=== PATIENT | male | born 1990 | race Caucasian/White ===

== ENCOUNTER 2020-10-25 04:16 | Emergency (ER) | payer OTHER ==
[2020-10-25] MEDS ORDERED: NA CHLORIDE 0.9% 1,000 ML ONE (04:54)
[2020-10-25] MEDS ORDERED: ONDANSETRON 4 MG/2 ML VIAL ONE (04:54)
[2020-10-25] MEDS ORDERED: KETOROLAC 30 MG/ML INJ ONE (04:54)
[2020-10-25] MEDS ORDERED: MORPHINE 4 MG/ML SYR ONE ×2 (04:57→05:18)
[2020-10-25 05:03] LABS: Basophils % 0.7 % (0-1.3); Hematocrit 47.7 % (39.6-49.0); Lymphocytes % 49.1 % (15.3-44.8); MPV 9.6 fL (7.6-11.3); RBC Red Blood Cell Count 5.56 M/uL (4.33-5.43)
[2020-10-25 05:07] LABS: Albumin 3.8 g/dL (3.4-5.0); Bilirubin Direct 0.3 mg/dL (0-0.2); Bilirubin Total 1.2 mg/dL (0.2-1.0); Potassium 4.1 mmol/L (3.5-5.1); Protein, Total 7.4 g/dL (6.4-8.2)
--- NOTE | 2020-10-25 05:48 | ER ---
Nurse's Notes [facility] Name: Sreedhar Sutherland JR. Age: 30 yrs Sex: Male : 1990 Arrival Date: 10/25/2020 Time: 04:17 Bed 7 Private MD: Diagnosis: Hydronephrosis with renal and ureteral calculous obstruction-4 mm left UVJ Presentation: 10/25 04:24 Chief complaint: Patient states: left flank pain X 30 min ago, +hx of kidney stones, iw +nausea. Coronavirus screen: At this time, the client does not indicate any symptoms associated with coronavirus-19. Ebola Screen: Patient negative for fever greater than or equal to 101.5 degrees Fahrenheit, and additional compatible Ebola Virus Disease symptoms Patient denies exposure to infectious person. Patient denies travel to an Ebola-affected area in the 21 days before illness onset. No symptoms or risks identified at this time. Initial Sepsis Screen: Does the patient meet any 2 criteria? No. Patient's initial sepsis screen is negative. Does the patient have a suspected source of infection? No. Patient's initial sepsis screen is negative. Risk Assessment: Do you want to hurt yourself or someone else? Patient reports no desire to harm self or others. Onset of symptoms was October 25, 2020. 04:24 Method Of Arrival: Ambulatory iw 04:24 Acuity: JAZZMINE 3 iw Historical: - Allergies: 04:25 No Known Allergies; iw - Home Meds: 04:25 Adderall XR Oral once daily [Active]; iw - PMHx: 04:25 ADD/ADHD; iw - PSHx: 04:25 None; iw - Immunization history:: Adult Immunizations not up to date. - Social history:: Smoking status: . - Family history:: not pertinent. Screenin:45 Abuse screen: Denies threats or abuse. Denies injuries from another. Nutritional jm8 screening: No deficits noted. Tuberculosis screening: No symptoms or risk factors identified. Fall Risk IV access (20 points). Assessment: 04:43 General: Appears distressed, uncomfortable, Behavior is agitated, crying, restless. jm8 Pain: Complains of pain in left flank Pain currently is 10 out of 10 on a pain scale. Pain began 30 min ago. Is continuous. Neuro: No deficits noted. Cardiovascular: No deficits noted. Respiratory: No deficits noted. GI: No deficits noted. Bowel sounds Abdomen is tender to palpation in posterior aspect of left lateral abdomen. : Reports burning with urination, pain in left flank(s). EENT: No deficits noted. Derm: No deficits noted. Musculoskeletal: No deficits noted. 04:56 Reassessment: Pt returns from CT at this time. still complains of pain. jm8 Vital Signs: 04:24 Weight 108.86 kg; Height 6 ft. 0 in. (182.88 cm); Pain 10/10; iw 04:27 BP 140 / 105; Pulse 62; Resp 20; Temp 97.8(O); Pulse Ox 100% on R/A; oe 05:24 BP 116 / 78; Pulse 62; Resp 20; Pulse Ox 100% ; Pain 5/10; jm8 04:24 Body Mass Index 32.55 (108.86 kg, 182.88 cm) iw ED Course: 04:17 Patient arrived in ED. bp1 04:20 Mike Rueda MD is Attending Physician. dillan 04:25 Triage completed. iw 04:25 Arm band placed on. iw 04:46 Patient has correct armband on for positive identification. Bed in low position. Call 8 light in reach. Side rails up X2. Adult w/ patient. Door closed. Warm blanket given. 05:03 CT Stone Protocol In Process Unspecified. EDMS 05:46 Jaleel Hoang MD is Referral Physician. dillan 06:09 No provider procedures requiring assistance completed. IV discontinued, intact, rv bleeding controlled, No redness/swelling at site. Pressure dressing applied. Administered Medications: 04:47 Drug: TORadol (ketorolac) 30 mg Route: IVP; Site: right antecubital; jm8 05:04 Follow up: Response: No adverse reaction; Pain is unchanged, physician notified jm8 04:47 Drug: morphine 4 mg Route: IVP; Site: right antecubital; jm8 05:02 Follow up: Response: No adverse reaction; Pain is unchanged, physician notified jm8 04:47 Drug: Zofran (Ondansetron) 4 mg Route: IVP; Site: right antecubital; jm8 05:02 Follow up: Response: No adverse reaction; Nausea is decreased 8 04:48 Drug: NS 0.9% 1000 ml Route: IV; Rate: 1 bolus; Site: right antecubital; jm8 05:03 Follow up: Response: No adverse reaction 8 06:10 Follow up: IV Status: Completed infusion; IV Intake: 1000ml rv 05:03 Drug: morphine 4 mg Route: IVP; Site: right antecubital; jm8 05:27 Follow up: Response: No adverse reaction; Pain is decreased 8 05:59 Drug: Flomax 0.4 mg Route: PO; 8 05:59 Follow up: Response: No adverse reaction; Medication administered at discharge. [facility] Intake: 06:10 IV: 1000ml; Total: 1000ml. rv Outcome: 05:47 Discharge ordered by . dillan 06:10 Discharged to home ambulatory. rv 06:10 Condition: good 06:10 Discharge instructions given to patient, Instructed on discharge instructions, follow up and referral plans. medication usage, Demonstrated understanding of instructions, follow-up care, medications, Prescriptions given X 4. 06:15 Patient left the ED. iw Signatures: Dispatcher [employer] EDMS Mike Rueda MD MD cha Williams, Irene, RN RN Vikas Owens Ronaldo, RN RN Iris Alves Joseph, RN RN jm8 Corrections: (The following items were deleted from the chart) 05:04 05:02 Response: No adverse reaction [facility] jm8 05:26 05:24 BP 162 / 99; Pulse 100bpm; Resp 20bpm; Pulse Ox 100%; [facility] jm8 06:08 05:24 BP 162 / 99; Pulse 100bpm; Resp 20bpm; Pulse Ox 100%; Pain 5/10; [facility] jm8
--- NOTE | 2020-10-25 05:48 | EDPHYS ---
Physician Documentation [facility] Name: Sreedhar Sutherland JR. Age: 30 yrs Sex: Male : 1990 Arrival Date: 10/25/2020 Time: 04:17 Bed 7 Private MD: ED Physician Mike Rueda HPI: 10/25 04:34 This 30 yrs old Male presents to ER via Ambulatory with complaints of dillan Possible Kidney Stone. 04:34 The patient complains of pain in the left low back and left mid back. Location: left dillan low back and left mid back. Onset: The symptoms/episode began/occurred just prior to arrival. Modifying factors: The symptoms are alleviated by nothing. the symptoms are aggravated by nothing. Associated signs and symptoms: The patient has no apparent associated signs or symptoms. Severity of pain: At its worst the pain was severe in the emergency department the pain is unchanged. The patient has experienced similar episodes in the past, multiple times. Historical: - Allergies: 04:25 No Known Allergies; iw - Home Meds: 04:25 Adderall XR Oral once daily [Active]; iw - PMHx: 04:25 ADD/ADHD; iw - PSHx: 04:25 None; iw - Immunization history:: Adult Immunizations not up to date. - Social history:: Smoking status: . - Family history:: not pertinent. ROS: 04:34 Constitutional: Negative for fever, chills, and weight loss, Eyes: Negative for injury, dillan pain, redness, and discharge, ENT: Negative for injury, pain, and discharge, Neck: Negative for injury, pain, and swelling, Cardiovascular: Negative for chest pain, palpitations, and edema, Respiratory: Negative for shortness of breath, cough, wheezing, and pleuritic chest pain, Abdomen/GI: Negative for abdominal pain, nausea, vomiting, diarrhea, and constipation, : Negative for injury, bleeding, discharge, and swelling, MS/Extremity: Negative for injury and deformity, Skin: Negative for injury, rash, and discoloration, Neuro: Negative for headache, weakness, numbness, tingling, and seizure, Psych: Negative for depression, anxiety, suicide ideation, homicidal ideation, and hallucinations, Allergy/Immunology: Negative for hives, rash, and allergies, Endocrine: Negative for neck swelling, polydipsia, polyuria, polyphagia, and marked weight changes, Hematologic/Lymphatic: Negative for swollen nodes, abnormal bleeding, and unusual bruising. 04:34 Back: Positive for decreased range of motion, flank pain, on the left. Exam: 04:34 Constitutional: This is a well developed, well nourished patient who is awake, alert, dillan and in no acute distress. Head/Face: Normocephalic, atraumatic. Eyes: Pupils equal round and reactive to light, extra-ocular motions intact. Lids and lashes normal. Conjunctiva and sclera are non-icteric and not injected. Cornea within normal limits. Periorbital areas with no swelling, redness, or edema. ENT: Nares patent. No nasal discharge, no septal abnormalities noted. Tympanic membranes are normal and external auditory canals are clear. Oropharynx with no redness, swelling, or masses, exudates, or evidence of obstruction, uvula midline. Mucous membranes moist. Neck: Trachea midline, no thyromegaly or masses palpated, and no cervical lymphadenopathy. Supple, full range of motion without nuchal rigidity, or vertebral point tenderness. No Meningismus. Chest/axilla: Normal chest wall appearance and motion. Nontender with no deformity. No lesions are appreciated. Cardiovascular: Regular rate and rhythm with a normal S1 and S2. No gallops, murmurs, or rubs. Normal PMI, no JVD. No pulse deficits. Respiratory: Lungs have equal breath sounds bilaterally, clear to auscultation and percussion. No rales, rhonchi or wheezes noted. No increased work of breathing, no retractions or nasal flaring. Abdomen/GI: Soft, non-tender, with normal bowel sounds. No distension or tympany. No guarding or rebound. No evidence of tenderness throughout. Male : Normal genitalia with no discharge or lesions. Skin: Warm, dry with normal turgor. Normal color with no rashes, no lesions, and no evidence of cellulitis. MS/ Extremity: Pulses equal, no cyanosis. Neurovascular intact. Full, normal range of motion. Neuro: Awake and alert, GCS 15, oriented to person, place, time, and situation. Cranial nerves II-XII grossly intact. Motor strength 5/5 in all extremities. Sensory grossly intact. Cerebellar exam normal. Normal gait. Psych: Awake, alert, with orientation to person, place and time. Behavior, mood, and affect are within normal limits. 04:34 Back: pain, that is moderate, ROM is normal, normal spinal alignment noted, CVA tenderness, that is mild, is noted on the left, muscle spasm, is not present. Vital Signs: 04:24 Weight 108.86 kg; Height 6 ft. 0 in. (182.88 cm); Pain 10/10; iw 04:27 BP 140 / 105; Pulse 62; Resp 20; Temp 97.8(O); Pulse Ox 100% on R/A; oe 05:24 BP 116 / 78; Pulse 62; Resp 20; Pulse Ox 100% ; Pain 5/10; jm8 04:24 Body Mass Index 32.55 (108.86 kg, 182.88 cm) iw MDM: 04:21 Patient medically screened. [facility] 04:40 Differential diagnosis: nephrolithiasis, pyelonephritis, UTI, testicular torsion. Data dillan reviewed: vital signs, nurses notes, lab test result(s), radiologic studies, CT scan. Data interpreted: monitor car operator: rate is 62 beats/min, rhythm is regular, Pulse oximetry: on. Counseling: I had a detailed discussion with the patient and/or guardian regarding: the historical points, exam findings, and any diagnostic results supporting the discharge/admit diagnosis, lab results, radiology results. 10/25 04:23 Order name: Basic Metabolic Panel [facility] 10/25 04:23 Order name: CBC with Diff [facility] 10/25 04:23 Order name: Hepatic Function; Complete Time: 05:45 [facility] 10/25 04:23 Order name: Lipase; Complete Time: 05:45 [facility] 10/25 04:23 Order name: Basic Metabolic Panel; Complete Time: 05:45 EDMS 10/25 04:23 Order name: CT Stone Protocol [facility] 10/25 04:23 Order name: CBC with Automated Diff; Complete Time: 05:45 EDMS 10/25 04:23 Order name: IV Saline Lock; Complete Time: 04:48 [facility] 10/25 04:23 Order name: Labs collected and sent; Complete Time: 04:48 [facility] Administered Medications: 04:47 Drug: TORadol (ketorolac) 30 mg Route: IVP; Site: right antecubital; [facility] 05:04 Follow up: Response: No adverse reaction; Pain is unchanged, physician notified jm8 04:47 Drug: morphine 4 mg Route: IVP; Site: right antecubital; jm8 05:02 Follow up: Response: No adverse reaction; Pain is unchanged, physician notified jm8 04:47 Drug: Zofran (Ondansetron) 4 mg Route: IVP; Site: right antecubital; jm8 05:02 Follow up: Response: No adverse reaction; Nausea is decreased jm8 04:48 Drug: NS 0.9% 1000 ml Route: IV; Rate: 1 bolus; Site: right antecubital; jm8 05:03 Follow up: Response: No adverse reaction jm8 06:10 Follow up: IV Status: Completed infusion; IV Intake: 1000ml rv 05:03 Drug: morphine 4 mg Route: IVP; Site: right antecubital; jm8 05:27 Follow up: Response: No adverse reaction; Pain is decreased [facility] 05:59 Drug: Flomax 0.4 mg Route: PO; jm8 05:59 Follow up: Response: No adverse reaction; Medication administered at discharge. [facility] Disposition: 10/25/20 05:47 Discharged to Home. Impression: Hydronephrosis with renal and ureteral calculous obstruction - 4 mm left UVJ. - Condition is Stable. - Discharge Instructions: Kidney Stones, Kidney Stones, [id number], Hydronephrosis, Dietary Guidelines to Help Prevent Kidney Stones. - Prescriptions for Tylenol- Codeine #3 300-30 mg Oral Tablet - take 2 tablet by ORAL route every 4-6 hours As needed; 30 tablet. Zofran 4 mg Oral Tablet - take 1 tablet by ORAL route every 12 hours As needed; 20 tablet. Flomax 0.4 mg Oral Capsule, Sust. Release 24 hr - take 1 capsule by ORAL route once daily 1/2 hour following the same meal each day; 30 capsule. Cipro 500 mg Oral Tablet - take 1 tablet by ORAL route every 12 hours for 7 days; 14 tablet. - Medication Reconciliation Form, Thank You Letter, Antibiotic Education, Prescription Opioid Use form. - Follow up: Private Physician; When: 2 - 3 days; Reason: Recheck today's complaints, Continuance of care, Re-evaluation by your physician. Follow up: Jaleel Hoang; When: 2 - 3 days; Reason: Recheck today's complaints, Re-evaluation by your physician. - Problem is new. - Symptoms have improved. Signatures: Dispatcher [employer] Mike Brock MD MD cha Williams, Irene, RN RN Devendra Ingram RN RN jm8 Edmund Rodriguez RN rv Corrections: (The following items were deleted from the chart) 06:15 05:47 10/25/2020 05:47 Discharged to Home. Impression: Hydronephrosis with renal and iw ureteral calculous obstruction - 4 mm left UVJ. Condition is Stable. Discharge Instructions: Kidney Stones, Kidney Stones, [id number], Hydronephrosis, Dietary Guidelines to Help Prevent Kidney Stones. Prescriptions for Tylenol-Codeine #3 300-30 mg Oral Tablet - take 2 tablet by ORAL route every 4-6 hours As needed; 30 tablet, Zofran 4 mg Oral Tablet - take 1 tablet by ORAL route every 12 hours As needed; 20 tablet, Flomax 0.4 mg Oral Capsule, Sust. Release 24 hr - take 1 capsule by ORAL route once daily 1/2 hour following the same meal each day; 30 capsule, Cipro 500 mg Oral Tablet - take 1 tablet by ORAL route every 12 hours for 7 days; 14 tablet. and Forms are Medication Reconciliation Form, Thank You Letter, Antibiotic Education, Prescription Opioid Use. Follow up: Private Physician; When: 2 - 3 days; Reason: Recheck today's complaints, Continuance of care, Re-evaluation by your physician. Follow up: Jaleel Hoang; When: 2 - 3 days; Reason: Recheck today's complaints, Re-evaluation by your physician. Problem is new. Symptoms have improved. dillan
[2020-10-25] MEDS ORDERED: TAMSULOSIN 0.4 MG SR CAP ONE (06:14)
[2020-10-25 06:16] LABS: Urine Blood 3+ (Negative); Urine Glucose Negative (Negative); Urine Protein Negative (Negative); Urine Specific Gravity >=1.030 (1.005-1.030); Urine pH 5.5 (5.0-7.0)
[2020-10-25 06:21] VITALS: TEMP 97.8; O2SAT 100
[2020-10-25 06:22] VITALS: BP 116/78
--- NOTE | 2020-10-25 11:41 | RAD REPORT ---
EXAM DESCRIPTION: CT - Stone Protocol - 10/25/2020 6:32 am CLINICAL HISTORY: The patient is 30 years old and is Male; Abd pain;Flank pain TECHNIQUE: Axial computed tomography images of the abdomen and pelvis without intravenous contrast. Sagittal and coronal reformatted images were created and reviewed. This CT exam was performed usi ng one or more of the following dose reduction techniques: automated exposure control, adjustment o f the mA and/or kV according to patient size, and/or use of iterative reconstruction technique. COMPARISON: No relevant prior studies available. FINDINGS: Lung bases: Unremarkable. No mass. No consolidation. ABDOMEN: Liver: Unremarkable. Gallbladder and bile ducts: Unremarkable. No calcified stones. No ductal dilation. Pancreas: Unremarkable. No ductal dilation. Spleen: Unremarkable. No splenomegaly. Adrenals: Unremarkable. No mass. Kidneys and ureters: 4 mm left UVJ stone. Mild left hydroureteronephrosis. Punctate nonobstructing calcifications in the kidneys bilaterally. Stomach and bowel: Unremarkable. No obstruction. No mucosal thickening. PELVIS: Appendix: No findings to suggest acute appendicitis. Bladder: Unremarkable. No stones. Reproductive: Unremarkable as visualized. ABDOMEN and PELVIS: Intraperitoneal space: Unremarkable. No free air. No significant fluid collection. Bones/joints: No acute fracture. No dislocation. Soft tissues: Unremarkable. Vasculature: Unremarkable. No abdominal aortic aneurysm. Lymph nodes: Unremarkable. No enlarged lymph nodes. IMPRESSION: 4 mm left UVJ stone. Mild left hydroureteronephrosis. Electronically signed by: Mauri Gu MD 10/25/2020 5:20 AM CDT Due to temporary technical issues with the PACS/Fluency reporting system, reports are being signed by the in house radiologist without review as a courtesy to ensure prompt reporting. The interpreting r adiologist is fully responsible for the content of the report.
== END 2020-10-25 06:15 | disposition home or self-care (01) ==
LOC: ER 04:16
DX: N13.2 Hydronephrosis with renal and ureteral calculous obstruction (principal); F90.9 Attention-deficit hyperactivity disorder, unspecified type
CPT/HCPCS: 96361; 85025; 80048; 36415; 80076; 81003; 83690; 76377; 74176; 96375; 96374; 99283; J7030; J2405

== ENCOUNTER 2020-12-29 15:46 | Emergency (ER) | payer OTHER ==
[2020-12-29 16:22] LABS: Absolute Lymphocytes (CBC) 4.1 K/uL (0.7-4.9); Basophils % 1.1 % (0-1.3); Lymphocytes % 41.5 % (15.3-44.8); MPV 9.8 fL (7.6-11.3); RBC Red Blood Cell Count 5.88 M/uL (4.33-5.43)
[2020-12-29] MEDS ORDERED: KETOROLAC 30 MG/ML INJ ONE (16:28)
[2020-12-29] MEDS ORDERED: ONDANSETRON 4 MG/2 ML VIAL ONE (16:29)
[2020-12-29] MEDS ORDERED: NA CHLORIDE 0.9% 1,000 ML ONE (16:29)
[2020-12-29 16:38] LABS: Albumin 3.8 g/dL (3.4-5.0); Bilirubin Direct 0.2 mg/dL (0-0.2); Bilirubin Total 0.7 mg/dL (0.2-1.0); Potassium 3.7 mmol/L (3.5-5.1); Protein, Total 7.8 g/dL (6.4-8.2)
[2020-12-29] MEDS ORDERED: MORPHINE 4 MG/ML SYR ONE ×2 (16:42→17:53)
--- NOTE | 2020-12-29 17:04 | RAD REPORT ---
EXAM DESCRIPTION: CT - Stone Protocol - 12/29/2020 4:30 pm CLINICAL HISTORY: FLANK PAIN COMPARISON: Stone Protocol dated 10/25/2020; Stone Protocol dated 03/26/2018 TECHNIQUE: Axial 3 mm thick images were obtained without oral or IV contrast. The [id number] span s the entirety of the system including uppermost abdomen and lung bases. All CT scans are performed using dose optimization technique as appropriate and may include automated exposure control or mA/KV adjustment according to patient size. FINDINGS: Mild hydronephrosis present secondary to a 3 mm calcification mid right ureter. No other o bstructing or nonobstructing calculi on the right. Patient has a 5 mm calcification in the mid left k idney with 3 mm and 5 mm calcifications in upper pole of the left kidney. No suspicious renal masses. Isodense masses and pyelonephritis are not excluded on a stone protocol CT scan. No significant adre nal finding. Urinary bladder is contracted limiting assessment. No bladder calculi. Imaged portions of the liver, spleen and pancreas show no suspicious findings on non-contrast imaging . No gallbladder or biliary tree abnormality identified. No suspicious bowel findings. Appendix is normal. No hernia, mass or bulky lymphadenopathy noted. No free air, free fluid or inflammatory stranding. No significant bony abnormality. IMPRESSION: Mild right hydronephrosis secondary to a 3 mm mid ureter calculus. Nonobstructing left renal calculi. Isodense masses and pyelonephritis are not excluded on stone protocol technique.
[2020-12-29] MEDS ORDERED: MAGNESIUM SULFATE 1 gm IVPB 1 GM/100 ML BAG IV ONE (17:46)
[2020-12-29] MEDS ORDERED: TAMSULOSIN 0.4 MG SR CAP ONE (17:46)
[2020-12-29] MEDS ORDERED: HYDROMORPHONE HCL 1 MG/ML INJ ONE (18:31)
--- NOTE | 2020-12-29 18:33 | ER ---
Nurse's Notes [facility] Name: Sreedhar Sutherland JR. Age: 30 yrs Sex: Male : 1990 Arrival Date: 12/29/2020 Time: 15:48 Bed 7 Private MD: Diagnosis: Calculus of kidney and ureter-right Presentation: 12/29 15:51 Coronavirus screen: Client denies travel out of the [place] in the last 14 days. At this ll1 time, the client does not indicate any symptoms associated with coronavirus-19. Initial Sepsis Screen: Does the patient meet any 2 criteria? No. Patient's initial sepsis screen is negative. Does the patient have a suspected source of infection? Yes: Dysuria/Frequency/Urgency/UTI. Risk Assessment: Do you want to hurt yourself or someone else? Patient reports no desire to harm self or others. Onset of symptoms was December 29, 2020. 15:51 Method Of Arrival: Ambulatory 1 15:51 Acuity: JAZZMINE 3 1 15:56 Chief complaint: Patient states: Severe R lower back pain with nausea and sweating for ll1 1 day. States it feels like when he had his past kidney stones. No known fever. 15:57 Ebola Screen: Patient denies travel to an Ebola-affected area in the 21 days before 1 illness onset. Historical: - Allergies: 15:53 No Known Allergies; ll1 - PMHx: 15:53 ADD/ADHD; Kidney stones; ll1 - PSHx: 15:53 None; ll1 - Immunization history:: Flu vaccine status is unknown. - Social history:: Smoking status: Patient denies any tobacco usage or history of. Screenin:15 Abuse screen: Denies threats or abuse. Denies injuries from another. Nutritional tr6 screening: No deficits noted. Tuberculosis screening: No symptoms or risk factors identified. Fall Risk None identified. Assessment: 16:16 General: Appears distressed, uncomfortable, Behavior is crying, restless. Pain: tr6 Complains of pain in right sided abdominal pain Pain at worst was 10 out of 10 on a pain scale. Pain began suddenly, 30 min ago. Noted to be crying, grimacing, moaning, restless, Also complains of nausea, diaphoresis. Neuro: No deficits noted. Cardiovascular: No deficits noted. Respiratory: No deficits noted. GI: Abdomen is obese, Abd is soft and non tender Reports right sided abdominal pain starting 30 minutes ago. : No deficits noted. EENT: No deficits noted. Derm: No deficits noted. Musculoskeletal: No deficits noted. 17:18 Reassessment: Patient states feeling better. Patient states symptoms have improved. pt tr6 reports that pain meds helped with the pain. 17:51 Reassessment: Patient and/or family updated on plan of care and expected duration. Pain tr6 level reassessed. Patient is alert, oriented x 3, equal unlabored respirations, skin warm/dry/pink. three andrea sized welts noted on pts right forearm proximal to IV insertion site. pt denies pain or itching. PA aware. will continue to monitor. 18:20 Reassessment: pt given more pain medications. pt reports that the pain medication is tr6 not as effective as before. Vital Signs: 15:51 BP 138 / 106; Pulse 64; Resp 18; Temp 97.4; Pulse Ox 98% ; Weight 113.4 kg; Height 6 ll1 ft. 0 in. (182.88 cm); Pain 10/10; 18:20 BP 132 / 98; Pulse 60; Resp 18; Pulse Ox 96% on R/A; tr6 15:51 Body Mass Index 33.91 (113.40 kg, 182.88 cm) ll1 ED Course: 15:48 Patient arrived in ED. am2 15:52 Triage completed. ll1 15:53 Arm band placed on Patient placed in an exam room, on a stretcher. ll1 15:55 Wen Hackett RN is Primary Nurse. tr6 15:57 Mike Armas PA is PHCP. cp 15:57 Mike Rueda MD is Attending Physician. cp 16:15 Appears restless. Awaiting lab results. tr6 16:15 Patient has correct armband on for positive identification. Bed in low position. Call tr6 light in reach. Side rails up X 1. Pulse ox on. NIBP on. Door closed. Noise minimized. Visitors limited. Lights dimmed. Moved to private room. Cool cloth applied. Diet: Patient is NPO. 16:15 Inserted saline lock: 18 gauge in right forearm, using aseptic technique. Blood tr6 collected. 16:15 No provider procedures requiring assistance completed. tr6 16:30 CT Stone Protocol In Process Unspecified. EDMS 18:32 Jaleel Hoang MD is Referral Physician. cp 19:14 IV discontinued, intact, bleeding controlled, No redness/swelling at site. Pressure tr6 dressing applied. Administered Medications: 16:14 Drug: TORadol - (ketorolac) 15 mg Route: IVP; Site: right forearm; tr6 17:21 Follow up: Response: Pain is unchanged, physician notified tr6 16:14 Drug: Zofran (Ondansetron) 4 mg Route: IVP; Site: right forearm; tr6 17:21 Follow up: Response: Nausea is decreased tr6 16:14 Drug: NS 0.9% 1000 ml Route: IV; Rate: 1 bolus; Site: right forearm; tr6 16:30 Drug: morphine 4 mg Route: IVP; Site: right forearm; tr6 17:20 Follow up: Response: Pain is decreased; Anxiety decreased tr6 17:33 Drug: Flomax (tamsulosin) 0.4 mg Route: PO; tr6 17:34 Drug: Magnesium Sulfate 1 grams Route: IVPB; Infused Over: 20 mins; Site: right forearm;tr6 17:35 Drug: morphine 4 mg Route: IVP; Site: right forearm; tr6 18:13 Drug: Dilaudid (HYDROmorphone) 1 mg Route: IVP; Site: right forearm; tr6 Outcome: 18:32 Discharge ordered by MD. cp 19:14 Discharged to home ambulatory. tr6 19:14 Condition: stable 19:14 Discharge instructions given to patient, family, significant other, Instructed on discharge instructions, follow up and referral plans. medication usage, safety practices, Demonstrated understanding of instructions, follow-up care, medications, Prescriptions given X 2. 19:14 Patient left the ED. tr6 Signatures: Dispatcher [employer] EDMS Mike Armas PA PA cp Moreno, Amanda am2 Ariadne Adams RN RN ll1 Wen Hackett RN RN tr6
--- NOTE | 2020-12-29 18:33 | EDPHYS ---
Physician Documentation [facility] Name: Sreedhar Sutherland JR. Age: 30 yrs Sex: Male : 1990 Arrival Date: 12/29/2020 Time: 15:48 Bed 7 Private MD: ED Physician Mike Rueda HPI: 12/29 16:05 This 30 yrs old Male presents to ER via Ambulatory with complaints of Flank cp Pain. 16:05 The patient complains of pain in the right flank. The pain radiates to the right low cp back and right side abdomen. Onset: The symptoms/episode began/occurred suddenly, today. Associated signs and symptoms: Pertinent positives: nausea, Pertinent negatives: dysuria, fever, pain radiating to the lower extremities. Severity of pain: in the emergency department the pain is unchanged despite home interventions. The patient has experienced similar episodes in the past, today's symptoms are similar, to when the patient was apparently diagnosed with kidney stone. Historical: - Allergies: 15:53 No Known Allergies; ll1 - PMHx: 15:53 ADD/ADHD; Kidney stones; ll1 - PSHx: 15:53 None; ll1 - Immunization history:: Flu vaccine status is unknown. - Social history:: Smoking status: Patient denies any tobacco usage or history of. ROS: 16:10 Constitutional: Negative for body aches, chills, fever, poor PO intake. cp 16:10 Eyes: Negative for injury, pain, redness, and discharge. cp 16:10 ENT: Negative for ear pain, sore throat, difficulty swallowing, difficulty handling secretions. 16:10 Cardiovascular: Negative for chest pain. 16:10 Respiratory: Negative for cough, shortness of breath, wheezing. 16:10 Abdomen/GI: Positive for abdominal pain, nausea, Negative for diarrhea, constipation, active vomiting. 16:10 Back: Positive for flank pain, on the right. 16:10 : Negative for urinary symptoms, testicular pain 16:10 Neuro: Negative for altered mental status, headache, weakness. 16:10 All other systems are negative. Exam: 16:20 Head/Face: Normocephalic, atraumatic. cp 16:20 Constitutional: The patient appears in no acute distress, alert, awake, non-toxic, well developed, well nourished, in obvious pain, uncomfortable. 16:20 Eyes: Periorbital structures: appear normal, Conjunctiva: normal, no exudate, no injection, Sclera: no appreciated abnormality, Lids and lashes: appear normal, bilaterally. 16:20 ENT: External ear(s): are unremarkable, Nose: is normal, Mouth: Lips: moist, Oral mucosa: moist, Posterior pharynx: Airway: no evidence of obstruction, patent. 16:20 Chest/axilla: Inspection: normal, Palpation: is normal, no crepitus, no tenderness. 16:20 Cardiovascular: Rate: normal, Rhythm: regular, Edema: is not appreciated, JVD: is not appreciated. 16:20 Respiratory: the patient does not display signs of respiratory distress, Respirations: normal, no use of accessory muscles, no retractions, labored breathing, is not present, Breath sounds: are clear throughout, no decreased breath sounds, no stridor, no wheezing. 16:20 Abdomen/GI: Inspection: abdomen appears normal, Bowel sounds: active, all quadrants, Palpation: soft, in all quadrants, severe abdominal tenderness, in the anterior aspect of right lateral abdomen and posterior aspect of right lateral abdomen, rebound tenderness, is not appreciated, voluntary guarding, is elicited in the anterior aspect of right lateral abdomen and posterior aspect of right lateral abdomen. 16:20 Neuro: Orientation: to person, place \T\ time. Mentation: is normal. Vital Signs: 15:51 BP 138 / 106; Pulse 64; Resp 18; Temp 97.4; Pulse Ox 98% ; Weight 113.4 kg; Height 6 ll1 ft. 0 in. (182.88 cm); Pain 10/10; 18:20 BP 132 / 98; Pulse 60; Resp 18; Pulse Ox 96% on R/A; tr6 15:51 Body Mass Index 33.91 (113.40 kg, 182.88 cm) ll1 MDM: 15:58 Patient medically screened. cp 16:20 Differential diagnosis: nephrolithiasis, pyelonephritis, UTI, pancreatitis. cp 18:30 ED course: Review of [place] prescription monitor website: narcotic score 090, sedative cp score 040, overdose risk score 280. 18:31 Data reviewed: vital signs, nurses notes, lab test result(s), radiologic studies, CT cp scan. 18:31 Counseling: I had a detailed discussion with the patient and/or guardian regarding: the cp historical points, exam findings, and any diagnostic results supporting the discharge/admit diagnosis, lab results, radiology results, to return to the emergency department if symptoms worsen or persist or if there are any questions or concerns that arise at home. Response to treatment: the patient's symptoms have markedly improved after treatment, VSS. Pain markedly improved. Will discharge to home for continued monitoring. 12/29 16:00 Order name: Basic Metabolic Panel; Complete Time: 17:06 12/29 17:06 Interpretation: Normal except: CL 109; GFR 88. 12/29 16:00 Order name: CBC with Diff; Complete Time: 17:06 12/29 17:17 Interpretation: Normal except: RBC 5.88; HCT 51.0. 12/29 16:00 Order name: Hepatic Function; Complete Time: 17:06 12/29 17:17 Interpretation: Normal except: GLOB 4.0; A/G 1.0. 12/29 16:00 Order name: Lipase; Complete Time: 17:06 12/29 16:00 Order name: CT Stone Protocol; Complete Time: 17:06 12/29 16:00 Order name: IV Saline Lock; Complete Time: 16:14 12/29 16:00 Order name: Labs collected and sent; Complete Time: 16:15 12/29 17:51 Order name: PO challenge; Complete Time: 18:02 cp Administered Medications: 16:14 Drug: TORadol - (ketorolac) 15 mg Route: IVP; Site: right forearm; tr6 17:21 Follow up: Response: Pain is unchanged, physician notified tr6 16:14 Drug: Zofran (Ondansetron) 4 mg Route: IVP; Site: right forearm; tr6 17:21 Follow up: Response: Nausea is decreased tr6 16:14 Drug: NS 0.9% 1000 ml Route: IV; Rate: 1 bolus; Site: right forearm; tr6 16:30 Drug: morphine 4 mg Route: IVP; Site: right forearm; tr6 17:20 Follow up: Response: Pain is decreased; Anxiety decreased tr6 17:33 Drug: Flomax (tamsulosin) 0.4 mg Route: PO; tr6 17:34 Drug: Magnesium Sulfate 1 grams Route: IVPB; Infused Over: 20 mins; Site: right forearm;tr6 17:35 Drug: morphine 4 mg Route: IVP; Site: right forearm; tr6 18:13 Drug: Dilaudid (HYDROmorphone) 1 mg Route: IVP; Site: right forearm; tr6 Disposition: 12/29/20 18:32 Discharged to Home. Impression: Calculus of kidney and ureter - right. - Condition is Stable. - Discharge Instructions: Kidney Stones. - Prescriptions for Tylenol- Codeine #3 300-30 mg Oral Tablet - take 2 tablets by ORAL route every 6-8 hours As needed; 20 tablet. Zofran 4 mg Oral Tablet - take 1 tablet by ORAL route every 12 hours As needed; 20 tablet. Flomax 0.4 mg Oral Capsule, Sust. Release 24 hr - take 1 capsule by ORAL route once daily As needed 1/2 hour following the same meal each day; 7 capsule. Keflex 500 mg Oral Capsule - take 1 capsule by ORAL route every 12 hours for 7 days; 14 capsule. - Medication Reconciliation Form, Thank You Letter, Antibiotic Education, Prescription Opioid Use form. - Follow up: Jaleel Hoang MD; When: 2 - 3 days; Reason: Recheck today's complaints. - Problem is new. - Symptoms have improved. Signatures: Dispatcher [employer] EDMS Mike Armas PA PA cp Lewis, Lynsay, RN RN ll1 Wen Hackett RN RN tr6 Corrections: (The following items were deleted from the chart) 19:14 18:32 12/29/2020 18:32 Discharged to Home. Impression: Calculus of kidney and ureter - tr6 right. Condition is Stable. Forms are Medication Reconciliation Form, Thank You Letter, Antibiotic Education, Prescription Opioid Use. Follow up: Jaleel Hoang; When: 2 - 3 days; Reason: Recheck today's complaints. Problem is new. Symptoms have improved. cp :37 12/28 16:20 Constitutional: The patient appears in no acute distress, alert, awake, cp non-toxic, well developed, well nourished, in obvious pain, uncomfortable, cp 12/29 21:37 12/28 16:20 Head/Face: Normocephalic, atraumatic. cp cp 12/29 21:37 12/28 16:20 Eyes: Periorbital structures: appear normal, Conjunctiva: normal, no cp exudate, no injection, Sclera: no appreciated abnormality, Lids and lashes: appear normal, bilaterally, cp 12/29 21:12/28 16:20 ENT: External ear(s): are unremarkable, Nose: is normal, Mouth: Lips: cp moist, Oral mucosa: moist, Posterior pharynx: Airway: no evidence of obstruction, patent, cp 12/29 21:12/28 16:20 Chest/axilla: Inspection: normal, Palpation: is normal, no crepitus, no cp tenderness, cp 12/29 21:12/28 16:20 Cardiovascular: Rate: normal, Rhythm: regular, Edema: is not appreciated, cp JVD: is not appreciated, cp 12/29 20:12/28 16:20 Respiratory: the patient does not display signs of respiratory distress, cp Respirations: normal, no use of accessory muscles, no retractions, labored breathing, is not present, Breath sounds: are clear throughout, no decreased breath sounds, no stridor, no wheezing, cp 12/29 21:12/28 16:20 Abdomen/GI: Inspection: abdomen appears normal, Bowel sounds: active, all cp quadrants, Palpation: soft, in all quadrants, severe abdominal tenderness, in the anterior aspect of right lateral abdomen and posterior aspect of right lateral abdomen, rebound tenderness, is not appreciated, voluntary guarding, is elicited in the anterior aspect of right lateral abdomen and posterior aspect of right lateral abdomen, cp 12/29 20:12/28 16:20 Neuro: Orientation: to person, place \T\ time. Mentation: is normal, cp cp
[2020-12-29 19:20] VITALS: TEMP 97.4
[2020-12-29 19:21] VITALS: BP 132/98; O2SAT 96
== END 2020-12-29 19:14 | disposition home or self-care (01) ==
LOC: ER 15:46
DX: N20.2 Calculus of kidney with calculus of ureter (principal); Z87.442 Personal history of urinary calculi
CPT/HCPCS: 85025; 80048; 36415; 80076; 83690; 76377; 74176; J3475; J1170; J7030; J2405; 96374; 96375; 99284

== ENCOUNTER 2023-12-29 03:47 | Emergency (ER) | payer OTHER ==
--- OUTSIDE RECORDS SUMMARY | 2023-12-29 03:50 | XMS REPORT | Continuity of Care Document ---
Author Name Unknown Address [address] [place], [place] [address]ect Address [address] [place] [id number] Care Team Providers Care Director Of Quality Control Name Role Phone Manda Demarco Attending Clinician Unavailable Encounters Start Date/Time End Date/Time Encounter Type Admission Type Attending Clinicians Care Facility Care Department Encounter ID Source 2021-07-31 12:59:38 Outpatient Manda Demarco [facility] [id number] [facility]
[2023-12-29] MEDS ORDERED: ONDANSETRON 4 MG/2 ML VIAL ONE (03:59)
[2023-12-29] MEDS ORDERED: NA CHLORIDE 0.9% 1,000 ML ONE ×2 (03:59→07:23)
[2023-12-29] MEDS ORDERED: KETOROLAC 30 MG/ML INJ ONE (03:59)
[2023-12-29] MEDS ORDERED: MORPHINE 4 MG/ML SYR ONE (04:00)
[2023-12-29 04:23] LABS: Absolute Eosinophils 0.4 K/uL (0-0.5); Absolute Lymphocytes (CBC) 3.2 K/uL (0.7-4.9); Absolute Monocytes 0.7 K/uL (0.1-1.3); Absolute Neutrophil 4.8 K/uL (1.8-8.0); Basophils % 0.4 % (0-1.3); Eosinophils % 4.3 % (0-4.4); Hematocrit 50.7 % (39.6-49.0); Hemoglobin 17.4 g/dL (13.6-17.9); Lymphocytes % 34.7 % (15.3-44.8); MCH 30.1 pg (27.0-35.0); MCHC 34.3 g/dL (32.0-36.0); MCV 87.7 fL (80-100); MPV 10.3 fL (7.6-11.3); Neutrophils % 52.6 % (41.7-73.7); Platelets 392 thou/uL (152-406); RBC Red Blood Cell Count 5.78 M/uL (4.33-5.43); Red Cell Distribution Width 13.9 % (12.1-15.2)
[2023-12-29 04:43] LABS: Albumin 3.6 g/dL (3.4-5.0); Anion Gap 10.1 mEq/L (5.0-15.0); Bilirubin Total 0.7 mg/dL (0.2-1.0); Globulin 3.7 g/dL (2.3-3.5); Potassium 4.1 mEq/L (3.5-5.1); Protein, Total 7.3 g/dL (6.4-8.2)
[2023-12-29] MEDS ORDERED: FENTANYL CITR 100 MCG/2 ML ONE (04:48)
[2023-12-29 08:50] LABS: Specific Gravity 1.025 (1.005-1.030); Sqamous Epithelial <5 /HPF (None Seen); Urine Bacteria <20 /HPF (<20); Urine Bilirubin NEGATIVE (Negative); Urine Blood 3+ (OVER) (Negative); Urine Clarity Extremely Turbid (Clear); Urine Color Light-Orange (Yellow); Urine Culture Reflex Order NOT NEEDED; Urine Glucose NEGATIVE (Negative); Urine Ketones NEGATIVE (Negative); Urine Microscopic Reflex YN ORDER UMIC; Urine Mucus 3+ /HPF (None Seen); Urine Nitrite NEGATIVE (Negative); Urine Protein 1+ (Negative); Urine RBC >50 /HPF (None Seen); Urine Urobilinogen Normal (Normal); Urine WBC <5 /HPF (<5); Urine Yeast (Budding) Occasional /HPF (None Seen); Urine pH 5.5 (5.0-7.0)
--- NOTE | 2023-12-29 09:00 | ER ---
Nurse's Notes [facility] Name: Sreedhar Sutherland Jr Age: 33 yrs Sex: Male : 1990 Arrival Date: 12/29/2023 Time: 03:47 Bed 8 Private MD: Diagnosis: Calculus of ureter Presentation: 12/28 03:58 Chief complaint: Patient states: Left flank pain with associated nausea since 0200. lg3 Coronavirus screen: Vaccine status: Patient reports being unvaccinated. Client denies travel out of the [place] in the last 14 days. Ebola Screen: Patient negative for fever greater than or equal to 101.5 degrees Fahrenheit, and additional compatible Ebola Virus Disease symptoms Patient denies exposure to infectious person. Patient denies travel to an Ebola-affected area in the 21 days before illness onset. Initial Sepsis Screen: Does the patient meet any 2 criteria? No. Patient's initial sepsis screen is negative. Does the patient have a suspected source of infection? No. Patient's initial sepsis screen is negative. Risk Assessment: Do you want to hurt yourself or someone else? Patient reports no desire to harm self or others. Onset of symptoms was December 29, 2023 at 02:00. 03:58 Method Of Arrival: Ambulatory lg3 03:58 Acuity: JAZZMINE 3 lg3 Triage Assessment: 03:59 General: Appears in no apparent distress. uncomfortable, Behavior is calm, cooperative. lg3 Pain: Complains of pain in left low back Pain radiates to left lower quadrant Pain currently is 9 out of 10 on a pain scale. Quality of pain is described as sharp, Pain began 2 hours ago. Is continuous. GI: Reports nausea. : Reports pain in left flank(s), lower quadrant(s). Historical: - Allergies: 03:59 No Known Allergies; lg3 - Home Meds: 03:59 Adderall XR 25 mg oral Capsule, ER 24 hr [Active]; losartan 25 mg oral tablet 1 tab lg3 daily [Active]; - PMHx: 03:59 ADD/ADHD; Kidney stones; Hypertensive disorder; lg3 - PSHx: 03:59 None; lg3 - Immunization history:: Adult Immunizations up to date, Client reports having NOT received the Covid vaccine. Last tetanus immunization: up to date. - Infectious Disease History:: Denies. - Social history:: Smoking status: Patient denies any tobacco usage or history of. Screenin:58 [facility] ED Fall Risk Assessment (Adult) History of falling in the last 3 months, ko1 including since admission No falls in past 3 months (0 pts) Confusion or Disorientation No (0 pts) Intoxicated or Sedated No (0 pts) Impaired Gait No (0 pts) Mobility Assist Device Used No (0 pt) Altered Elimination No (0 pt) Score/Fall Risk Level 0 - 2 = Low Risk Oriented to surroundings, Maintained a safe environment, Educated pt \T\ family on fall prevention, incl call for assistance when getting out of bed, Assessed \T\ reinforced patient's understanding of fall precautions, Provided non-skid footwear, Hourly rounding (assess needs \T\ fall precautionary measures) done, Used ambulatory aids as needed (educated on \T\ assisted with), Used gait belt as appropriate. Abuse screen: Denies threats or abuse. Denies injuries from another. Nutritional screening: No deficits noted. Tuberculosis screening: No symptoms or risk factors identified. Assessment: 03:52 General: Appears uncomfortable, Behavior is cooperative. Pain: Complains of pain in ha1 left low back Pain does not radiate. Pain currently is 9 out of 10 on a pain scale. Quality of pain is described as throbbing, Pain began suddenly. Neuro: Level of Consciousness is awake, alert, obeys commands, Oriented to person, place, time, situation. Cardiovascular: Capillary refill < 3 seconds Patient's skin is warm and dry. Respiratory: Airway is patent Respiratory effort is even, unlabored, Respiratory pattern is regular, symmetrical. GI: Abdomen is round non-distended, Bowel sounds present X 4 quads. Abd is soft and non tender Reports nausea. : Reports pain in left flank(s). Derm: Skin is pink, warm \T\ dry. 05:10 Reassessment: Patient and/or family updated on plan of care and expected duration. Pain tm6 level reassessed. Patient is alert, oriented x 3, equal unlabored respirations, skin warm/dry/pink. 06:20 Reassessment: patient attempting to urinate. tm6 08:16 Reassessment: Patient appears in no apparent distress at this time. Patient and/or ph family updated on plan of care and expected duration. Pain level reassessed. Patient is alert, oriented x 3, equal unlabored respirations, skin warm/dry/pink. Awaiting urine sample, pt states that he is unable to urinate at this time. Vital Signs: 03:58 BP 136 / 94; Pulse 58; Resp 18; Temp 97.7; Pulse Ox 98% ; Weight 122.47 kg; Height 6 lg3 ft. 0 in. ; Pain 9/10; 05:09 BP 139 / 92; Pulse 60; Pulse Ox 98% on R/A; Pain 8/10; tm6 06:20 Pulse 74; Pulse Ox 96% on R/A; tm6 08:58 BP 138 / 84; Pulse 64; Resp 16; Pulse Ox 98% ; ko1 03:58 Body Mass Index 36.62 (122.47 kg, 182.88 cm) lg3 03:58 Pain Scale: Adult lg3 05:09 Pain Scale: Adult tm6 ED Course: 03:51 Patient arrived in ED. jj6 03:52 Berry Krueger MD is Attending Physician. ec2 03:54 Maurilio Sweeney, RN is Primary Nurse. tm6 03:59 Triage completed. lg3 03:59 Arm band placed on right wrist. Patient placed in an exam room, on a stretcher. EKG lg3 completed in triage. Results shown to MD. 04:04 Inserted saline lock: 20 gauge in left forearm, using aseptic technique. Blood rc3 collected. 04:05 CBC with Diff Sent. rc3 04:05 CMP Sent. rc3 04:05 Lipase Sent. rc3 04:37 CT Abd/Pelvis - Without Contrast In Process Unspecified. EDMS 07:37 Attending Physician role handed off by Berry Krueger MD ms3 07:37 Eladio Machado DO is Attending Physician. ms3 08:29 Urinalysis w/ reflexes Sent. ko1 08:30 Urine collected: clean catch specimen, tea colored. ko1 08:58 Patient has correct armband on for positive identification. Bed in low position. Call ko1 light in reach. Provided Education on: call light, tests. Pulse ox on. NIBP on. Door closed. Noise minimized. Lights dimmed. Warm blanket given. Pillow given. 08:58 Assisted to bathroom. ko1 08:58 No provider procedures requiring assistance completed. ko1 08:59 Jaleel Hoang MD is Referral Physician. ms3 09:01 IV discontinued, intact, bleeding controlled, No redness/swelling at site. Pressure ko1 dressing applied. Administered Medications: 04:02 Drug: NS 0.9% IV 1000 ml IV at 1 bolus Per protocol; 1000 mL bolus Route: IV; Rate: 1 ha1 bolus; Site: left forearm; 09:08 Follow up: Response: No adverse reaction; IV Status: Completed infusion; IV Intake: ko1 1000ml 04:02 Drug: Ondansetron IVP 4 mg IVP once; over 2 minutes Route: IVP; Site: left forearm; ha1 07:00 Follow up: Response: No adverse reaction ko1 04:04 Drug: TORadol - Ketorolac IVP 15 mg IVP once Route: IVP; Site: right forearm; ha1 07:00 Follow up: Response: No adverse reaction ko1 04:07 Drug: morphine IVP or IV 4 mg IVP once over 4 mins Route: IVP; Infused Over: 4 mins; ha1 Site: left forearm; 07:00 Follow up: Response: No adverse reaction; RASS: Alert and Calm (0) ko1 04:58 Drug: fentaNYL (PF) IVP 100 mcg IVP once Route: IVP; Site: left antecubital; tm6 07:00 Follow up: Response: No adverse reaction; RASS: Alert and Calm (0) ko1 07:31 Drug: NS 0.9% IV 1000 ml IV at 1 bolus Per protocol; 1000 mL bolus Route: IV; Rate: 1 ph bolus; Site: left forearm; 09:00 Follow up: Response: No adverse reaction; IV Status: Completed infusion; IV Intake: ko1 1000ml 09:08 Follow up: Response: No adverse reaction; IV Status: Completed infusion; IV Intake: ko1 1000ml Medication: 08:58 VIS not applicable for this client. ko1 Intake: 09:00 IV: 1000ml; Total: 1000ml. ko1 09:08 IV: 1000ml; Total: 2000ml. ko1 09:08 IV: 1000ml; Total: 3000ml. ko1 Outcome: 08:59 Discharge ordered by . ms3 09:01 Discharged to home ambulatory, with family, ko1 09:01 Condition: stable 09:01 Discharge instructions given to patient, family, Instructed on discharge instructions, follow up and referral plans. medication usage, Demonstrated understanding of instructions, follow-up care, medications, Prescriptions given X 3, 09:08 Patient left the ED. ko1 Signatures: Dispatcher [employer] Aliya Bond, RN RN Marilia Fuller RN RN lg3 Eladio Machado DO DO ms3 Adrianna Pabon jj6 Ilana Ochoa RN RN ha1 Michelle Lazar RN RN ko1 Berry Krueger MD MD ec2 Maurilio Sweeney RN RN 6 Saira Isaac3
--- NOTE | 2023-12-29 09:00 | EDPHYS ---
Physician Documentation [facility] Name: Sreedhar Sutherland Jr Age: 33 yrs Sex: Male : 1990 Arrival Date: 12/29/2023 Time: 03:47 Bed 8 Private MD: ED Physician Eladio Machado HPI: 12/28 04:22 This 33 yrs old Male presents to ER via Ambulatory with complaints of ec2 Possible Kidney Stone. 04:22 Patient arrives today for evaluation of left-sided flank pain. Patient reports ec2 left-sided flank pain that has been worsening with department evaluation. Patient reports history of 3 previous kidney stones. . Historical: - Allergies: 03:59 No Known Allergies; lg3 - Home Meds: 03:59 Adderall XR 25 mg oral Capsule, ER 24 hr [Active]; losartan 25 mg oral tablet 1 tab lg3 daily [Active]; - PMHx: 03:59 ADD/ADHD; Kidney stones; Hypertensive disorder; lg3 - PSHx: 03:59 None; lg3 - Immunization history:: Adult Immunizations up to date, Client reports having NOT received the Covid vaccine. Last tetanus immunization: up to date. - Infectious Disease History:: Denies. - Social history:: Smoking status: Patient denies any tobacco usage or history of. ROS: 04:22 Constitutional: as per hpi ec2 Exam: 04:22 Constitutional: GEN: NAD Head: atraumatic Eyes: EOMI Ears: External ears are ec2 normal. CV: regular rate LUNGS: no respiratory distress ABD: non-distended, left CVA TTP SKIN: no evidence of rashes MSK: no evidence of trauma NEURO: moves all extremities equally Vital Signs: 03:58 BP 136 / 94; Pulse 58; Resp 18; Temp 97.7; Pulse Ox 98% ; Weight 122.47 kg; Height 6 lg3 ft. 0 in. ; Pain 9/10; 05:09 BP 139 / 92; Pulse 60; Pulse Ox 98% on R/A; Pain 8/10; tm6 06:20 Pulse 74; Pulse Ox 96% on R/A; tm6 08:58 BP 138 / 84; Pulse 64; Resp 16; Pulse Ox 98% ; ko1 03:58 Body Mass Index 36.62 (122.47 kg, 182.88 cm) lg3 03:58 Pain Scale: Adult lg3 05:09 Pain Scale: Adult tm6 MDM: 03:53 Patient medically screened. ec2 04:22 Data reviewed: vital signs. ED course: Patient arrives today for evaluation of the left ec2 flank pain. Examination remarkable for left flank findings as noted above. Will obtain lab work, CT imaging, treat the patient's symptoms. Differential diagnosis includes ureteral stone, UTI, pyelonephritis.. 05:49 ED course: CBC is reassuring, metabolic profile without renal disturbances, lipase ec2 within normal ranges. My review of the CT scan, left-sided ureteral stone, 3 mm in size. Radiology reports also associated hydronephrosis as well as fatty liver nephrolithiasis. On reassessment patient with marked improvement in his pain. . 05:52 ED course: MDM: Differential diagnosis as documented above in ED course; All lab tests ec2 ordered and reviewed as documented above; Independent interpretation of tests: imaging as above; Parenteral controlled substances: Yes; . 07:37 Transition of care:. ms3 12/28 03:54 Order name: CBC with Diff; Complete Time: 05:49 ec2 12/28 03:54 Order name: CMP; Complete Time: 05:49 ec2 12/28 03:54 Order name: Lipase; Complete Time: 05:49 ec2 12/28 03:54 Order name: Urinalysis w/ reflexes; Complete Time: 08:57 ec2 12/28 03:54 Order name: CT Abd/Pelvis - Without Contrast ec2 12/28 03:54 Order name: IV Saline Lock; Complete Time: 04:05 ec2 12/28 03:54 Order name: Labs collected and sent; Complete Time: 04:05 ec2 Administered Medications: 04:02 Drug: NS 0.9% IV 1000 ml IV at 1 bolus Per protocol; 1000 mL bolus Route: IV; Rate: 1 ha1 bolus; Site: left forearm; 09:08 Follow up: Response: No adverse reaction; IV Status: Completed infusion; IV Intake: ko1 1000ml 04:02 Drug: Ondansetron IVP 4 mg IVP once; over 2 minutes Route: IVP; Site: left forearm; ha1 07:00 Follow up: Response: No adverse reaction ko1 04:04 Drug: TORadol - Ketorolac IVP 15 mg IVP once Route: IVP; Site: right forearm; ha1 07:00 Follow up: Response: No adverse reaction ko1 04:07 Drug: morphine IVP or IV 4 mg IVP once over 4 mins Route: IVP; Infused Over: 4 mins; ha1 Site: left forearm; 07:00 Follow up: Response: No adverse reaction; RASS: Alert and Calm (0) ko1 04:58 Drug: fentaNYL (PF) IVP 100 mcg IVP once Route: IVP; Site: left antecubital; tm6 07:00 Follow up: Response: No adverse reaction; RASS: Alert and Calm (0) ko1 07:31 Drug: NS 0.9% IV 1000 ml IV at 1 bolus Per protocol; 1000 mL bolus Route: IV; Rate: 1 ph bolus; Site: left forearm; 09:00 Follow up: Response: No adverse reaction; IV Status: Completed infusion; IV Intake: ko1 1000ml 09:08 Follow up: Response: No adverse reaction; IV Status: Completed infusion; IV Intake: ko1 1000ml Disposition Summary: 12/29/23 08:59 Discharge Ordered Notes: Location: Home ms3 Condition: Stable ms3 Diagnosis - Calculus of ureter ms3 Followup: ec2 - With: Jaleel Hoang MD - When: - Reason: Recheck today's complaints Discharge Instructions: - Discharge Summary Sheet ec2 - Kidney Stones ec2 Forms: - Medication Reconciliation Form ms3 - Antibiotic Education ms3 - Prescription Opioid Use ms3 - Patient Portal Instructions ms3 - Leadership Thank You Letter ms3 Prescriptions: - acetaminophen-codeine 300-15 mg Oral tablet - take 1 tablet ORAL route 3 times per day; 15 tablet; Refills: 0, Product ec2 Selection Permitted - tamsulosin 0.4 mg Oral capsule - take 1 capsule ORAL route every 24 hours; 14 capsule; Refills: 0, Product ec2 Selection Permitted - Zofran 4 mg Oral Tablet - take 1 tablet ORAL route every 12 hours As needed; 20 tablet; Refills: 0, ec2 Product Selection Permitted Signatures: Dispatcher [employer] Aliya Bond RN RN ph Able, Lacie, RN RN lg3 Eladio Machado DO DO ms3 Ilana Ochoa RN RN 1 Berry Krueger MD MD 2 Maurilio Sweeney RN RN 6 Michelle Lazar RN ko1 Corrections: (The following items were deleted from the chart) 03:54 03:54 CBC+H.LAB.BRZ ordered. EDMS EDMS 03:54 03:54 COMPREHENSIVE METABOLIC PANEL+C.LAB.BRZ ordered. EDMS EDMS 03:54 03:54 LIPASE+C.LAB.BRZ ordered. EDMS EDMS 03:54 03:54 Urinalysis+U.LAB.BRZ ordered. EDMS EDMS
[2023-12-29 11:46] VITALS: BP 138/84; TEMP 97.7; O2SAT 98
--- NOTE | 2023-12-29 17:17 | RAD REPORT ---
EXAM DESCRIPTION: CT - Abdomen Pelvis Wo Contrast - 12/29/2023 6:43 am CLINICAL HISTORY: The patient is 33 years old and is Male; L flank pain, hx of stones TECHNIQUE: Axial computed tomography images of the abdomen and pelvis without intravenous contrast. Sagittal and coronal reformatted images were created and reviewed. This CT exam was performed usi ng one or more of the following dose reduction techniques: automated exposure control, adjustment o f the mA and/or kV according to patient size, and/or use of iterative reconstruction technique. COMPARISON: No relevant prior studies available. FINDINGS: Lung bases: Unremarkable. No mass. No consolidation. ABDOMEN: Liver: Fatty liver. Gallbladder and bile ducts: Unremarkable. No calcified stones. No ductal dilation. Pancreas: Unremarkable. No ductal dilation. Spleen: Unremarkable. No splenomegaly. Adrenals: Unremarkable. No mass. Kidneys and ureters: Mild left hydronephrosis with a 3.0 mm calculus in the proximal ureter. Left nephrolithiasis. Right kidney is unremarkable. Stomach and bowel: No bowel dilatation or obstruction. No bowel wall thickening. No gastric wall thickening. Air-fluid level in the gastric lumen. PELVIS: Appendix: The visualized appendix is normal. No pericecal inflammation to suggest acute appendici tis. Bladder: Unremarkable. No stones. Reproductive: Unremarkable as visualized. ABDOMEN and PELVIS: Intraperitoneal space: Unremarkable. No free air. No significant fluid collection. Bones/joints: No acute fracture. No dislocation. Soft tissues: Unremarkable. Vasculature: Unremarkable. No abdominal aortic aneurysm. Lymph nodes: No pathologically enlarged lymph nodes. IMPRESSION: 1. Mild left hydronephrosis with a 3.0 mm calculus in the proximal ureter. 2. Left nephrolithiasis. 3. Fatty liver. Electronically signed by: Luba Carranza MD 12/29/2023 05:43 AM CDT ND Due to temporary technical issues with the PACS/Fluency reporting system, reports are being signed by the in house radiologists without review as a courtesy to insure prompt reporting. The interpreting radiologist is fully responsible for the content of the report.
== END 2023-12-29 09:08 | disposition home or self-care (01) ==
LOC: ER 03:47
DX: N20.1 Calculus of ureter (principal); Z87.442 Personal history of urinary calculi
CPT/HCPCS: 85025; 81001; 36415; 83690; 80053; 74176; J3010; J2405; J7030 ×2

== ENCOUNTER 2024-05-27 15:18 | Emergency (ER) | payer OTHER ==
--- OUTSIDE RECORDS SUMMARY | 2024-05-27 15:23 | XMS REPORT | Continuity of Care Document ---
Author Name Unknown Address [address] [place], [place] [address]ect Address [address] [place] [id number] Care Team Providers Care Poster Name Role Phone Manda Demarco Attending Clinician Unavailable Encounters Start Date/Time End Date/Time Encounter Type Admission Type Attending Clinicians Care Facility Care Department Encounter ID Source 2021-07-31 12:59:38 Outpatient Manda Demarco [facility] [id number] [facility]
[2024-05-27] MEDS ORDERED: ONDANSETRON 4 MG/2 ML VIAL ONE (15:51)
[2024-05-27] MEDS ORDERED: NA CHLORIDE 0.9% 1,000 ML ONE (15:52)
[2024-05-27] MEDS ORDERED: HYDROMORPHONE HCL 1 MG/ML INJ ONE ×2 (15:52→17:50)
[2024-05-27 16:16] LABS: Absolute Basophils 0.1 K/uL (0-0.5); Absolute Eosinophils 0.3 K/uL (0-0.5); Absolute Lymphocytes (CBC) 3.4 K/uL (0.7-4.9); Absolute Monocytes 0.5 K/uL (0.1-1.3); Absolute Neutrophil 6.7 K/uL (1.8-8.0); Basophils % 0.8 % (0-1.3); Eosinophils % 2.8 % (0-4.4); Hematocrit 50.1 % (39.6-49.0); Lymphocytes % 30.7 % (15.3-44.8); MCH 29.7 pg (27.0-35.0); MCHC 33.9 g/dL (32.0-36.0); MCV 87.6 fL (80-100); MPV 10.1 fL (7.6-11.3); Monocytes % 4.9 % (3.3-12.3); Neutrophils % 60.8 % (41.7-73.7); Nucleated Red Blood Cells % 0.1 % (0-0); Platelets 369 thou/uL (152-406); RBC Red Blood Cell Count 5.72 M/uL (4.33-5.43)
[2024-05-27 16:22] LABS: Albumin 3.4 g/dL (3.4-5.0); Albumin/Globulin Ratio 0.9 (1.1-1.8); Anion Gap 10.7 mEq/L (5.0-15.0); Bilirubin Total 0.7 mg/dL (0.2-1.0); Globulin 3.6 g/dL (2.3-3.5); Potassium 3.7 mEq/L (3.5-5.1)
[2024-05-27] MEDS ORDERED: KETOROLAC 30 MG/ML INJ ONE (16:32)
--- NOTE | 2024-05-27 17:12 | RAD REPORT ---
EXAMINATION: Stone Protocol CLINICAL INDICATION: Abdominal pain left flank pain TECHNIQUE: CT abdomen and pelvis was performed, without IV contrast, as per department protocol. Oral contrast not given. Axial, sagittal and coronal reconstructions were obtained. One or more of the following dose reduction techniques were used: Automated exposure control, adjustment of the mA and k V according to the patient size, and iterative reconstruction. Unless otherwise specified, incidental findings do not require dedicated imaging follow-up. COMPARISON: December 2023 FINDINGS: The lack of intravenous and oral contrast limits the sensitivity of this exam for evaluation of solid visceral organs, vascular structures, and bowel Mild to moderate left hydronephrosis mild stranding adjacent to the renal pelvis and proximal left ur eter. 2 calculi within the proximal left ureter. One 6 mm the other 8 mm. Several tiny left renal calculi. No right renal calculus. Fatty liver. The spleen pancreas and adrenals unremarkable Normal appendix. No evidence of diverticulitis. IMPRESSION: Left proximal ureteral calculi result in mild to moderate left hydronephrosis
--- NOTE | 2024-05-27 17:35 | ER ---
Nurse's Notes [facility] Name: Sreedhar Sutherland Jr Age: 33 yrs Sex: Male : 1990 Arrival Date: 05/27/2024 Time: 15:18 Bed 14 Private MD: Diagnosis: Calculus of kidney with calculus of ureter;Hydronephrosis with renal and ureteral calculous obstruction Presentation: 05/27 15:40 Chief complaint: Patient states: L flank pain and nausea x 2 hours, hx of kidney ph stones,says this feels the same. Coronavirus screen: Vaccine status: Patient reports being unvaccinated. Ebola Screen: No symptoms or risks identified at this time. Initial Sepsis Screen: Does the patient meet any 2 criteria? No. Patient's initial sepsis screen is negative. Does the patient have a suspected source of infection? No. Patient's initial sepsis screen is negative. Risk Assessment: Do you want to hurt yourself or someone else? Patient reports no desire to harm self or others. Onset of symptoms was May 27, 2024. 15:40 Method Of Arrival: Ambulatory ph 15:40 Acuity: JAZZMINE 3 ph Historical: - Allergies: 15:42 No Known Allergies; ph - Home Meds: 15:42 Adderall XR 25 mg Oral Capsule [Active]; losartan 25 mg Oral tablet 1 tab daily ph [Active]; - PMHx: 15:42 ADD/ADHD; Hypertensive disorder; Kidney stones; ph - Immunization history:: Adult Immunizations unknown. - Infectious Disease History:: Denies. - Social history:: Smoking status: Patient denies any tobacco usage or history of. Screenin:00 [facility] ED Fall Risk Assessment (Adult) History of falling in the last 3 months, ph including since admission No falls in past 3 months (0 pts) Confusion or Disorientation No (0 pts) Intoxicated or Sedated No (0 pts) Impaired Gait No (0 pts) Mobility Assist Device Used No (0 pt) Altered Elimination No (0 pt) Score/Fall Risk Level 0 - 2 = Low Risk Oriented to surroundings, Maintained a safe environment, Hourly rounding (assess needs \T\ fall precautionary measures) done, Used ambulatory aids as needed (educated on \T\ assisted with). Abuse screen: Denies threats or abuse. Has been threatened or abused. Nutritional screening: No deficits noted. Tuberculosis screening: No symptoms or risk factors identified. Assessment: 16:00 General: Appears in no apparent distress. uncomfortable, Behavior is calm, cooperative. ph Pain: Complains of pain in left mid back. Neuro: Level of Consciousness is awake, alert, obeys commands, Oriented to person, place, time, situation. Cardiovascular: Capillary refill < 3 seconds in bilateral fingers Patient's skin is warm and dry. Respiratory: Airway is patent Respiratory effort is even, unlabored. : Reports pain in left flank(s). Derm: Skin is pink, warm \T\ dry. 18:14 Reassessment: Patient appears in no apparent distress at this time. Patient and/or ph family updated on plan of care and expected duration. Pain level reassessed. Patient is alert, oriented x 3, equal unlabored respirations, skin warm/dry/pink. Report called to MARCK Peterson at [facility] ED, awaiting EMS for transport. Vital Signs: 15:40 BP 129 / 75; Pulse 56; Resp 18; Temp 98; Pulse Ox 98% on R/A; Weight 117.93 kg; Height ph 6 ft. 0 in. ; 16:31 BP 148 / 98; ph 18:14 BP 136 / 82; Pulse 58; Resp 18; Temp 97.8; Pulse Ox 99% on R/A; ph 15:40 Body Mass Index 35.26 (117.93 kg, 182.88 cm) ph ED Course: 15:21 Patient arrived in ED. ec2 15:29 Mike Armas PA is PHCP. cp 15:29 Berry Krueger MD is Attending Physician. cp 15:40 Aliya Fonseca, MARCK is Primary Nurse. ph 15:42 Triage completed. ph 15:42 Arm band placed on Patient placed in an exam room, on a stretcher, on pulse oximetry. ph 15:46 Initial lab(s) drawn, by me, sent to lab. Inserted saline lock: 20 gauge in right ph antecubital area, using aseptic technique. Blood collected. Flushed with 10 mL NS. 16:00 CBC with Diff Sent. ph 16:00 CMP Sent. ph 16:00 Lipase Sent. ph 16:43 CT Stone Protocol In Process Unspecified. EDMS 17:33 attempted to initiate a transfer with the [facility]/ after 3 minutes eb of ringing call was disconnected. 17:57 \[id number] initiated a transfer with Renae from the [facility]/ \T\[id number] eb administrative approval given by Renae Payne/ patient has been accepted to [facility] ED/ Dr. Michelle Hartman has accepted the patient in transfer without conference with Mike White/ report to be called to [phone]. 18:15 Patient has correct armband on for positive identification. Bed in low position. Call ph light in reach. Side rails up X 1. Pulse ox on. NIBP on. Door closed. Noise minimized. Warm blanket given. Pillow given. 18:15 No provider procedures requiring assistance completed. Patient transferred, IV remains ph in place. Administered Medications: 15:50 CANCELLED (Physician Discretion): ns 0.9% 1000 ml IV at 1 bolus Per protocol; to be cp given as a bolus over 60 minutes 15:59 Drug: HYDROmorphone IVP 1 mg IVP once Route: IVP; Site: right antecubital; ph 16:10 Follow up: Response: No adverse reaction; Pain is decreased; RASS: Alert and Calm (0) ph 16:00 Drug: Famotidine IVP 20 mg IVP once; dilute with 10 mL 0.9% NaCl; give over 2 minutes ph Route: IVP; Site: right antecubital; 16:10 Follow up: Response: No adverse reaction ph 16:00 Drug: Ondansetron IVP 4 mg IVP once; over 2 minutes Route: IVP; Site: right antecubital;ph 16:30 Follow up: Response: No adverse reaction; Nausea is decreased ph 16:00 Drug: NS 0.9% IV 1000 ml IV at 1 bolus Per protocol; to be given as a bolus over 60 ph minutes Route: IV; Rate: 1 bolus; Site: right antecubital; 17:00 Follow up: Response: No adverse reaction; IV Status: Completed infusion; IV Intake: ph 1000ml 16:41 Drug: Ketorolac IVP 30 mg IVP once Route: IVP; Site: right antecubital; ph 17:00 Follow up: Response: No adverse reaction ph 17:55 Not Given (took at homee): flomax0.4 mg PO once ph 17:55 Drug: HYDROmorphone IVP 1 mg IVP once Route: IVP; Site: right antecubital; ph 18:05 Follow up: Response: No adverse reaction; Pain is decreased; RASS: Alert and Calm (0) ph Medication: 18:15 VIS not applicable for this client. ph Intake: 17:00 IV: 1000ml; Total: 1000ml. ph Outcome: 17:34 ER care complete, transfer ordered by . cp 18:49 Transferred by ground EMS [place]. Transfer form completed. X-rays sent w/ ph patient. 18:49 Condition: stable 18:49 Patient left the ED. ph Signatures: Dispatcher [employer] Aliya Bond RN RN ph Mike Armas PA PA cp Botello, Elizabeth eb Corral, Edwin, MD MD ec2
--- NOTE | 2024-05-27 17:35 | EDPHYS ---
Physician Documentation [facility] Name: Sreedhar Sutherland Jr Age: 33 yrs Sex: Male : 1990 Arrival Date: 05/27/2024 Time: 15:18 Bed 14 Private MD: ED Physician Berry Krueger HPI: 05/27 15:48 This 33 yrs old Male presents to ER via Ambulatory with complaints of Left Flank Pain. cp 15:48 The patient complains of pain in the left flank. The pain radiates to the back. Onset: cp The symptoms/episode began/occurred 2 hour(s) ago. Associated signs and symptoms: Pertinent positives: nausea. 15:48 The patient has experienced similar episodes in the past, today's symptoms are similar, cp to when the patient was apparently diagnosed with kidney stone. Historical: - Allergies: 15:42 No Known Allergies; ph - Home Meds: 15:42 Adderall XR 25 mg Oral Capsule [Active]; losartan 25 mg Oral tablet 1 tab daily ph [Active]; - PMHx: 15:42 ADD/ADHD; Hypertensive disorder; Kidney stones; ph - Immunization history:: Adult Immunizations unknown. - Infectious Disease History:: Denies. - Social history:: Smoking status: Patient denies any tobacco usage or history of. ROS: 15:55 Constitutional: Negative for body aches, chills, fever, cp 15:55 Eyes: Negative for injury, pain, redness, and discharge, cp 15:55 Abdomen/GI: Positive for abdominal pain, nausea and vomiting, 15:55 Back: Positive for flank pain, on the left, Negative for injury or acute deformity, Exam: 16:00 Constitutional: The patient appears in no acute distress, alert, awake, cp non-diaphoretic, non-toxic, well developed, well nourished, in obvious pain, uncomfortable, 16:00 Head/Face: Normocephalic, atraumatic. cp 16:00 Eyes: Periorbital structures: appear normal, Conjunctiva: normal, no exudate, no injection, Sclera: no appreciated abnormality, Lids and lashes: appear normal, bilaterally, 16:00 ENT: External ear(s): are unremarkable, Nose: is normal, Mouth: Lips: moist, Oral mucosa: pink and intact, moist, Posterior pharynx: Airway: no evidence of obstruction, patent, 16:00 Chest/axilla: Inspection: normal, 16:00 Cardiovascular: Rate: bradycardic, Rhythm: regular, 16:00 Respiratory: the patient does not display signs of respiratory distress, Respirations: normal, no use of accessory muscles, no retractions, labored breathing, is not present, Breath sounds: are clear throughout, no decreased breath sounds, no stridor, no wheezing, 16:00 Abdomen/GI: Inspection: obese Bowel sounds: active, all quadrants, Palpation: soft, in all quadrants, moderate abdominal tenderness, in the anterior aspect of left lateral abdomen and posterior aspect of left lateral abdomen, rebound tenderness, is not appreciated, 16:00 Back: pain, that is severe, of the left mid back, ROM is normal, 16:00 Skin: cellulitis, is not appreciated, no rash present. 16:00 Neuro: Orientation: to person, place \T\ time. Mentation: is normal, Motor: moves all fours, strength is normal, Vital Signs: 15:40 BP 129 / 75; Pulse 56; Resp 18; Temp 98; Pulse Ox 98% on R/A; Weight 117.93 kg; Height ph 6 ft. 0 in. ; 16:31 BP 148 / 98; ph 18:14 BP 136 / 82; Pulse 58; Resp 18; Temp 97.8; Pulse Ox 99% on R/A; ph 15:40 Body Mass Index 35.26 (117.93 kg, 182.88 cm) ph MDM: 17:33 Data reviewed: vital signs, nurses notes, lab test result(s), radiologic studies, CT cp scan, and as a result, I will transfer patient. 17:33 Differential diagnosis: nephrolithiasis, pyelonephritis, UTI, diverticulitis, cp pancreatitis. I considered the following discharge prescriptions or medication management in the emergency department Medications were administered in the Emergency Department. See MAR. Counseling: I had a detailed discussion with the patient and/or guardian regarding the historical points, exam findings, and any diagnostic results supporting the discharge/admit diagnosis, lab results, radiology results. Response to treatment: the patient's symptoms have mildly improved after treatment. 17:34 Medical Screening Exam initiated 05/27 15:50 Order name: CBC with Diff; Complete Time: 16:31 05/27 15:50 Order name: CMP; Complete Time: 16:31 cp 05/27 15:50 Order name: Lipase; Complete Time: 16:31 cp 05/27 15:50 Order name: CT Stone Protocol; Complete Time: 17:18 cp 05/27 15:50 Order name: IV Saline Lock; Complete Time: 16:00 cp 05/27 15:50 Order name: Labs collected and sent; Complete Time: 16:00 cp Administered Medications: 15:50 CANCELLED (Physician Discretion): ns 0.9% 1000 ml IV at 1 bolus Per protocol; to be cp given as a bolus over 60 minutes 15:59 Drug: HYDROmorphone IVP 1 mg IVP once Route: IVP; Site: right antecubital; ph 16:10 Follow up: Response: No adverse reaction; Pain is decreased; RASS: Alert and Calm (0) ph 16:00 Drug: Famotidine IVP 20 mg IVP once; dilute with 10 mL 0.9% NaCl; give over 2 minutes ph Route: IVP; Site: right antecubital; 16:10 Follow up: Response: No adverse reaction ph 16:00 Drug: Ondansetron IVP 4 mg IVP once; over 2 minutes Route: IVP; Site: right antecubital;ph 16:30 Follow up: Response: No adverse reaction; Nausea is decreased ph 16:00 Drug: NS 0.9% IV 1000 ml IV at 1 bolus Per protocol; to be given as a bolus over 60 ph minutes Route: IV; Rate: 1 bolus; Site: right antecubital; 17:00 Follow up: Response: No adverse reaction; IV Status: Completed infusion; IV Intake: ph 1000ml 16:41 Drug: Ketorolac IVP 30 mg IVP once Route: IVP; Site: right antecubital; ph 17:00 Follow up: Response: No adverse reaction ph 17:55 Not Given (took at homee): flomax0.4 mg PO once ph 17:55 Drug: HYDROmorphone IVP 1 mg IVP once Route: IVP; Site: right antecubital; ph 18:05 Follow up: Response: No adverse reaction; Pain is decreased; RASS: Alert and Calm (0) ph Disposition Summary: 05/27/24 17:34 Transfer Ordered Notes: Transfer Location: Other Acute Care Facility cp Reason: Higher level of care cp Condition: Stable cp Problem: new cp Symptoms: have improved cp Accepting Physician: Doctor(05/27/24 18:49) ph Diagnosis - Calculus of kidney with calculus of ureter cp - Hydronephrosis with renal and ureteral calculous obstruction cp Forms: - Medication Reconciliation Form cp - SBAR form cp Signatures: Dispatcher [employer] EDAliya Blank RN RN ph Mike Amras PA PA cp Corrections: (The following items were deleted from the chart) 15:50 15:50 NS 0.9% IV 1000 ml IV at 1 bolus Per protocol; to be given as a bolus over 60 cp minutes ordered. cp 15:50 15:50 Stone Protocol+CT.RAD.BRZ ordered. EDMS EDMS 15:50 15:50 CBC+H.LAB.BRZ ordered. EDMS EDMS 15:50 15:50 COMPREHENSIVE METABOLIC PANEL+C.LAB.BRZ ordered. EDMS EDMS 15:50 15:50 LIPASE+C.LAB.BRZ ordered. EDMS EDMS 15:50 15:50 Urinalysis+U.LAB.BRZ ordered. EDMS EDMS 18:49 17:34 Doctor cp ph
[2024-05-27] MEDS ORDERED: TAMSULOSIN 0.4 MG SR CAP ONE (17:51)
[2024-05-27 21:00] VITALS: BP 136/82; TEMP 97.8; O2SAT 99
== END 2024-05-27 18:49 ==
LOC: ER 15:18
DX: N13.2 Hydronephrosis with renal and ureteral calculous obstruction (principal); Z87.442 Personal history of urinary calculi; I10 Essential (primary) hypertension
CPT/HCPCS: 96361; 85025; 36415; 83690; 80053; 76377; 74176; 96375; 96374; 99285; J1171 ×2; J2405; J7030